=== PATIENT | female | born 1990 | race Caucasian/White ===

== ENCOUNTER 2021-01-01 09:45 | Inpatient (IN) | payer OTHER ==
[2021-01-01 10:32] VITALS: BMI 46.3
[2021-01-01] MEDS ORDERED: OXYTOCIN 30 UNITS in 0.9% NS 30 UNIT/500 ML INFUS.BAG IVPB SCH (10:45)
[2021-01-01] MEDS: LACTATED RINGERS SOLUTION 1,000 ML IV SCH (11:00)
[2021-01-01] MEDS ORDERED: OXYTOCIN 30 UNITS in 0.9% NS 30 UNIT/500 ML INFUS.BAG IVPB ONE (11:13)
[2021-01-01 12:30] LABS: BASO % 0.2 % (0-2.0); HEMOGLOBIN 11.3 GM/dL (10.7-15.3); LYMPH % 18.7 % (8-40); MCH 29.8 pg (25.7-33.7); MCHC 34.2 g/dl (32.0-36.0); MEAN CELL VOLUME 87.1 fl (80-96); MEAN PLT VOLUME 8.9 fl (7.5-11.1); MONO % 10.7 % (3.8-10.2); NEUT % 68.4 % (42.8-82.8); PLATELET COUNT 279 K/MM3 (134-434); RBC 3.79 M/mm3 (3.60-5.2); RDW 14.5 % (11.6-15.6); WHITE BLOOD COUNT 10.2 K/mm3 (4.0-10.0)
[2021-01-01 12:32] LABS: INR 1.02 (0.83-1.09); PROTHROMBIN TIME (PATIENT) 12.3 SEC (9.7-13.0)
[2021-01-01 12:35] LABS: ACTIVATED PTT 26.4 SECONDS (25.2-36.5)
[2021-01-01 13:00] LABS: POTASSIUM 4.2 mmol/L (3.5-5.1)
[2021-01-01 13:01] LABS: CALCIUM 8.9 mg/dL (8.5-10.1)
[2021-01-01 13:02] LABS: BLOOD UREA NITROGEN 9.4 mg/dL (7-18)
[2021-01-01 13:05] LABS: CREATININE 0.6 mg/dL (0.55-1.3)
[2021-01-01 13:45] LABS: HIV INTERPRETATION NEGATIVE (NEGATIVE)
[2021-01-01] MEDS ORDERED: ACETAMINOPHEN 1000 MG/100 ML VIAL (NON FORMULARY) IVPB PRN ×2 (14:27→21:00)
[2021-01-01] MEDS ORDERED: SIMETHICONE 80 MG TAB.CHEW (FP) PO PRN (14:27)
[2021-01-01] MEDS ORDERED: SENNOSIDES/DOCUSATE COMBO (SENNA PLUS) TABLET (UD) PO PRN ×2 (14:27→21:00)
[2021-01-01] MEDS ORDERED: oxyCODONE HCL 5 MG TABLET PO PRN ×2 (14:27→21:00)
[2021-01-01] MEDS ORDERED: ONDANSETRON 4 MG/2 ML VIAL IVPB PRN ×2 (14:27→21:00)
[2021-01-01] MEDS ORDERED: IBUPROFEN 800 MG/8 ML IJ IVPB SCH (14:30)
[2021-01-01] MEDS ORDERED: OXYTOCIN 20 UNITS in 0.9% NS 20 UNIT/1,000 ML INFUS.BAG IV SCH ×2 (14:30→21:00)
[2021-01-01] MEDS ORDERED: WITCH HAZEL 50% (TUCKS) 40 PAD/JAR PAD TP PRN (14:31)
[2021-01-01] MEDS ORDERED: PCA PUMP NR ONE (15:02)
[2021-01-01] MEDS ORDERED: FENTANYL/BUPIVACAINE/NS/PF - PCEA - 50 ML DISP.SYRIN EP ONE ×2 (15:02→19:26)
[2021-01-01] MEDS ORDERED: BUPIVACAINE HCL/PF 0.25% (2.5MG/ML) 10 ML VIAL ONE (15:09)
[2021-01-01] MEDS ORDERED: NALOXONE HCL 0.4 MG/ML VIAL IVPUSH PRN (15:33)
[2021-01-01] MEDS ORDERED: FENTANYL/BUPIVACAINE/NS/PF - PCEA - 50 ML DISP.SYRIN EP SCH (15:45)
[2021-01-01] MEDS ORDERED: OXYTOCIN 20 UNITS in 0.9% NS 20 UNIT/1,000 ML INFUS.BAG IV ONE ×2 (19:27→23:14)
[2021-01-01] MEDS ORDERED: ACETAMINOPHEN 325 MG TABLET (FP) PO SCH (20:00)
[2021-01-01] MEDS ORDERED: LIDO 2%/EPI 1:200000 PRESRVFRE (20 ML SDVIAL) ONE (20:05)
[2021-01-01] MEDS ORDERED: IBUPROFEN 600 MG TABLET (FP) PO PRN ×2 (21:00→21:10)
[2021-01-01] MEDS ORDERED: ACETAMINOPHEN 325 MG TABLET (FP) PO PRN ×2 (21:00→21:10)
[2021-01-01] MEDS ORDERED: ONDANSETRON 4 MG/2 ML VIAL IVPUSH PRN (21:10)
[2021-01-01] MEDS ORDERED: IBUPROFEN 800 MG/8 ML IJ IVPB ONE (21:34)
[2021-01-01] MEDS: IBUPROFEN 800 MG/8 ML IJ IVPB PRN (21:42)
[2021-01-02] MEDS ORDERED: PRENATAL VITAMINS W/ FOLIC ACID TABLET (FP) PO SCH (10:00)
[2021-01-02] MEDS ORDERED: IBUPROFEN 600 MG TABLET (FP) PO SCH (10:00)
[2021-01-02 10:17] LABS: BASO % 0.2 % (0-2.0); EOS % 0.7 % (0-4.5); HEMATOCRIT 26.1 % (32.4-45.2); HEMOGLOBIN 8.9 GM/dL (10.7-15.3); LYMPH % 10.6 % (8-40); MCH 29.9 pg (25.7-33.7); MEAN CELL VOLUME 87.9 fl (80-96); MEAN PLT VOLUME 9.1 fl (7.5-11.1); NEUT % 80.5 % (42.8-82.8); PLATELET COUNT 225 K/MM3 (134-434); RBC 2.96 M/mm3 (3.60-5.2); WHITE BLOOD COUNT 10.8 K/mm3 (4.0-10.0)
[2021-01-02] MEDS: IBUPROFEN 800 MG/8 ML IJ IVPB PRN (11:51)
[2021-01-02] MEDS ORDERED: BISACODYL 10 MG SUPP.RECT RC PRN ×2 (14:27→21:00)
[2021-01-02] MEDS: SIMETHICONE 80 MG TAB.CHEW (FP) PO PRN (22:09)
[2021-01-02] MEDS: IBUPROFEN 600 MG TABLET (FP) PO PRN (22:10)
[2021-01-02] MEDS: oxyCODONE HCL 5 MG TABLET PO PRN (22:11)
[2021-01-02] MEDS ORDERED: diphenhydrAMINE HCL 50 MG CAPSULE PO PRN (22:30)
[2021-01-02] MEDS ORDERED: diphenhydrAMINE HCL 25 MG CAPSULE (FP) PO ONE (22:32)
[2021-01-03] MEDS ORDERED: diphenhydrAMINE HCL 25 MG CAPSULE (FP) PO ONE (12:13)
[2021-01-03] MEDS: ACETAMINOPHEN 325 MG TABLET (FP) PO PRN (12:17)
[2021-01-03] MEDS: IBUPROFEN 600 MG TABLET (FP) PO PRN (12:18)
[2021-01-03] MEDS: LACTATED RINGERS SOLUTION 1,000 ML IV SCH (13:17)
[2021-01-03] MEDS ORDERED: HYDROCORTISONE 1% TOPICAL CREAM 30 GM TUBE TP PRN (13:58)
[2021-01-04] MEDS: oxyCODONE HCL 5 MG TABLET PO PRN ×2 (02:46→09:21)
[2021-01-04] MEDS: IBUPROFEN 600 MG TABLET (FP) PO PRN ×2 (02:46→09:20)
[2021-01-04] MEDS: SIMETHICONE 80 MG TAB.CHEW (FP) PO PRN ×2 (02:47→09:22)
[2021-01-04] MEDS: ACETAMINOPHEN 325 MG TABLET (FP) PO PRN (09:21)
[2021-01-04 11:09] VITALS: BP 137/83; PULSE 98; TEMP 97.6
== END 2021-01-04 15:30 | disposition home or self-care (01) | DRG 788 ==
LOC: JLDR 09:45 → J3W 23:19
PROVIDERS: ADMIT Specialist; ATTEND Specialist
PROC: 10D00Z1 Extraction of Products of Conception, Low, Open Approach (ICD-10-PCS; principal; 2021-01-01)
PROC: 3E033VJ Introduction of Other Hormone into Peripheral Vein, Percutaneous Approach (ICD-10-PCS; 2021-01-01)
PROC: 10907ZC Drainage of Amniotic Fluid, Therapeutic from Products of Conception, Via Natural or Artificial Opening (ICD-10-PCS; 2021-01-01)
DX: O62.2 Other uterine inertia (principal); O36.63X0 Maternal care for excessive fetal growth, third trimester, not applicable or unspecified; O24.425 Gestational diabetes mellitus in childbirth, controlled by oral hypoglycemic drugs; Z3A.39 39 weeks gestation of pregnancy; Z37.0 Single live birth; Z86.59 Personal history of other mental and behavioral disorders
CPT/HCPCS: 36415; 80048; 85025; 85610; 85730; 86780; 86850; 86900; 86901; 87389; 88307-TC; J0131

== ENCOUNTER 2022-12-07 10:50 | Inpatient (IN) | payer OTHER ==
[2022-12-07] MEDS: ELECTROLYTE-148 SOLN 1,000 ML IV SCH ×2 (11:10→15:10)
[2022-12-07] MEDS ORDERED: AMPICILLIN SODIUM 2 GM VIAL ONE (11:46)
[2022-12-07] MEDS ORDERED: BETAMET ACET/BETAMET NA PH 30 MG/5 ML VIAL ONE (11:47)
[2022-12-07 11:57] VITALS: BMI 47.1
[2022-12-07] MEDS ORDERED: BETAMET ACET/BETAMET NA PH 30 MG/5 ML VIAL IM ONE (12:11)
[2022-12-07] MEDS ORDERED: AMPICILLIN - 2 GM in SODIUM CHLORIDE 100 ML IVPB ONE (12:13)
[2022-12-07 12:54] LABS: HEMATOCRIT 25.4 % (32.4-45.2); HEMOGLOBIN 8.5 GM/dL (10.7-15.3); MCHC 33.5 g/dl (32.0-36.0); MEAN CELL VOLUME 83.7 fl (80-96); MEAN PLT VOLUME 7.8 fl (7.5-11.1); PLATELET COUNT 412 10^3/uL (134-434); RBC 3.03 M/mm3 (3.60-5.2); RDW 16.6 % (11.6-15.6); WHITE BLOOD COUNT 25.1 K/mm3 (4.0-10.0)
[2022-12-07 13:00] LABS: INR 1.28 (0.83-1.09); PROTHROMBIN TIME (PATIENT) 14.8 SEC (9.7-13.0)
[2022-12-07 13:03] LABS: ACTIVATED PTT 30.5 SECONDS (25.2-36.5)
[2022-12-07 13:12] LABS: CALCIUM 8.6 mg/dL (8.5-10.1)
[2022-12-07 13:16] LABS: CREATININE 0.9 mg/dL (0.55-1.3)
[2022-12-07] MEDS ORDERED: OXYTOCIN 30 UNITS in 0.9% NS 30 UNIT/500 ML INFUS.BAG IVPB ONE (13:25)
[2022-12-07] MEDS ORDERED: FENTANYL/BUPIVACAINE/NS/PF - PCEA - 50 ML DISP.SYRIN EP ONE ×2 (13:40→17:06)
[2022-12-07] MEDS ORDERED: OXYTOCIN 30 UNITS in 0.9% NS 30 UNIT/500 ML INFUS.BAG IVPB SCH (13:45)
[2022-12-07 13:46] LABS: ANISOCYTOSIS 1+
[2022-12-07] MEDS ORDERED: BUPIVACAINE HCL/PF 0.25% (2.5MG/ML) 10 ML VIAL ONE (13:54)
[2022-12-07] MEDS: FENTANYL/BUPIVACAINE/NS/PF - PCEA - 50 ML DISP.SYRIN EP SCH (14:05)
[2022-12-07] MEDS ORDERED: NALOXONE HCL 0.4 MG/ML VIAL IVPUSH PRN (14:43)
[2022-12-07] MEDS ORDERED: AMPICILLIN SODIUM 1 GM VIAL ONE (15:59)
[2022-12-07] MEDS: AMPICILLIN - 1 GM in SODIUM CHLORIDE 100 ML IVPB SCH ×2 (16:05→22:30)
[2022-12-07] MEDS ORDERED: OXYTOCIN 20 UNITS in 0.9% NS 20 UNIT/1,000 ML INFUS.BAG IV ONE (17:57)
[2022-12-07] MEDS ORDERED: oxyCODONE HCL 5 MG TABLET PO PRN (19:26)
[2022-12-07] MEDS ORDERED: WITCH HAZEL 50% (TUCKS) 40 PAD/JAR PAD TP PRN (19:26)
[2022-12-07] MEDS ORDERED: METHYLERGONOVINE MALEATE 0.2 MG/1 ML AMP IM PRN (19:26)
[2022-12-07] MEDS ORDERED: ACETAMINOPHEN 325 MG TABLET (FP) PO PRN (19:26)
[2022-12-07] MEDS ORDERED: BISACODYL 10 MG SUPP.RECT RC PRN (19:26)
[2022-12-07] MEDS ORDERED: BENZOCAINE 28 GM HEMORRHOIDAL OINTMENT TP PRN (19:26)
[2022-12-07] MEDS ORDERED: OXYTOCIN 20 UNITS in 0.9% NS 20 UNIT/1,000 ML INFUS.BAG IV SCH (19:30)
[2022-12-07] MEDS ORDERED: IBUPROFEN 600 MG TABLET (FP) PO ONE (19:36)
[2022-12-07] MEDS: IBUPROFEN 600 MG TABLET (FP) PO PRN (19:37)
[2022-12-07] MEDS: BENZOCAINE 20% 57 GM BOTTLE TP PRN (22:10)
[2022-12-08] MEDS: IBUPROFEN 600 MG TABLET (FP) PO PRN ×3 (02:50→21:54)
[2022-12-08 07:44] LABS: HEMATOCRIT 26.1 % (32.4-45.2); HEMOGLOBIN 8.5 GM/dL (10.7-15.3); MCH 27.6 pg (25.7-33.7); MCHC 32.6 g/dl (32.0-36.0); MEAN CELL VOLUME 84.6 fl (80-96); PLATELET COUNT 392 10^3/uL (134-434); RBC 3.09 M/mm3 (3.60-5.2); RDW 16.6 % (11.6-15.6); WHITE BLOOD COUNT 26.4 K/mm3 (4.0-10.0)
[2022-12-08 09:20] LABS: ANISOCYTOSIS 3+; MACROCYTOSIS 0
[2022-12-08] MEDS ORDERED: DIPHTH,PERTUSS(ACELL),TET 0.5 ML DISP.SYRIN IM ONE (10:00)
[2022-12-08] MEDS: AMPICILLIN - 1 GM in SODIUM CHLORIDE 100 ML IVPB SCH ×2 (19:45→19:46)
[2022-12-08] MEDS: FENTANYL/BUPIVACAINE/NS/PF - PCEA - 50 ML DISP.SYRIN EP SCH (19:46)
[2022-12-08] MEDS ORDERED: SENNOSIDES/DOCUSATE COMBO (SENNA PLUS) TABLET (UD) PO PRN (22:00)
[2022-12-08] MEDS: BENZOCAINE 20% 57 GM BOTTLE TP PRN (22:43)
[2022-12-09] MEDS: IBUPROFEN 600 MG TABLET (FP) PO PRN (08:55)
[2022-12-09 09:09] LABS: BASO % 0.2 % (0-2.0); EOS % 0.6 % (0-4.5); HEMATOCRIT 26.5 % (32.4-45.2); HEMOGLOBIN 8.6 GM/dL (10.7-15.3); LYMPH % 12.1 % (8-40); MCH 27.5 pg (25.7-33.7); MCHC 32.3 g/dl (32.0-36.0); MEAN CELL VOLUME 85.2 fl (80-96); MEAN PLT VOLUME 7.8 fl (7.5-11.1); NEUT % 81.1 % (42.8-82.8); PLATELET COUNT 354 10^3/uL (134-434); RBC 3.11 M/mm3 (3.60-5.2); RDW 16.4 % (11.6-15.6); WHITE BLOOD COUNT 17.3 K/mm3 (4.0-10.0)
[2022-12-09 11:16] VITALS: BP 119/76; PULSE 75; RESP 16; TEMP 98.4
== END 2022-12-09 13:40 | disposition home or self-care (01) | DRG 807 ==
LOC: JLDR 10:50 → J3W 20:02
PROVIDERS: ADMIT Specialist; ATTEND Specialist
PROC: 10E0XZZ Delivery of Products of Conception, External Approach (ICD-10-PCS; principal; 2022-12-07)
PROC: 0W8NXZZ Division of Female Perineum, External Approach (ICD-10-PCS; 2022-12-07)
DX: O34.218 Maternal care for other type scar from previous cesarean delivery (principal); Z37.0 Single live birth; O24.424 Gestational diabetes mellitus in childbirth, insulin controlled; O99.214 Obesity complicating childbirth; E66.01 Morbid (severe) obesity due to excess calories; Z3A.35 35 weeks gestation of pregnancy
CPT/HCPCS: 36415; 59409; 80048; 82962; 85025; 85610; 85730; 86780; 86850; 86900; 86901; 90715; 96372; C9803-CS; U0003; U0005

== ENCOUNTER 2023-12-10 16:44 | Emergency (ER) | payer OTHER ==
[2023-12-10] MEDS ORDERED: FAMOTIDINE 20 MG/50 ML IVPB 20 MG/50 ML MG IVPB ONE (17:18)
[2023-12-10] MEDS ORDERED: SODIUM CHLORIDE 0.9% 500 ML INFUS.BAG IV ONE (17:18)
[2023-12-10] MEDS ORDERED: ACETAMINOPHEN 1000 MG/100 ML BAG IVPB ONE (17:18)
[2023-12-10] MEDS ORDERED: MAG HYDROX/AL HYDROX/SIMETH -MYLANTA- ORAL SUSPENSION PO ONE (17:18)
[2023-12-10 17:22] VITALS: BP 102/56; PULSE 63; RESP 18; TEMP 98.9; BMI 42.9
[2023-12-10] MEDS ORDERED: ACETAMINOPHEN 325 MG TABLET (FP) PO ONE (17:33)
[2023-12-10] MEDS ORDERED: ACETAMINOPHEN 500 MG TABLET (FP) ONE (17:34)
== END 2023-12-10 17:50 | disposition home or self-care (01) ==
LOC: FER 16:44
DX: R10.9 Unspecified abdominal pain (principal); K45.8 Other specified abdominal hernia without obstruction or gangrene
CPT/HCPCS: 99283-25

== ENCOUNTER 2023-12-19 11:11 | Emergency (ER) | payer OTHER ==
[2023-12-19 11:21] VITALS: BP 132/87; PULSE 82; RESP 18; TEMP 98.8; BMI 42.9
[2023-12-19] MEDS ORDERED: ONDANSETRON 4 MG/2 ML VIAL IVPUSH ONE ×2 (11:49→14:58)
[2023-12-19] MEDS ORDERED: SODIUM CHLORIDE 0.9% 1000 ML INFUS.BAG IV ONE (11:49)
[2023-12-19] MEDS ORDERED: FAMOTIDINE 20 MG/50 ML IVPB 20 MG/50 ML MG IVPB ONE ×2 (11:50→12:02)
[2023-12-19] MEDS ORDERED: ONDANSETRON 4 MG/2 ML VIAL ONE ×2 (12:02→15:01)
[2023-12-19 12:12] LABS: HEMATOCRIT 38.3 % (32.4-45.2); HEMOGLOBIN 12.7 G/dL (10.7-15.3); MCH 29.6 pg (25.7-33.7); MCHC 33.1 g/dl (32.0-36.0); MEAN CELL VOLUME 89.2 fl (80-96); MEAN PLT VOLUME 8.6 fl (7.5-11.1); PLATELET COUNT 423.8 10^3/uL (134-434); RBC 4.29 10^6/uL (3.60-5.2); RDW 14.4 % (11.6-15.6); WHITE BLOOD COUNT 9.7 10^3/uL (4.0-10.8)
[2023-12-19 12:21] LABS: HCG,QUALITATIVE URINE Negative
[2023-12-19 12:26] LABS: ALBUMIN 3.9 g/dl (3.4-5.0); BILIRUBIN,TOTAL 0.3 mg/dl (0.2-1); CREATININE 0.7 mg/dl (0.6-1.3); POTASSIUM 4.1 mmol/L (3.5-5.1); TOT PROT 7.1 g/dl (6.4-8.2)
== END 2023-12-19 15:22 | disposition home or self-care (01) ==
LOC: FER 11:11
PROC: 3E03329 Introduction of Other Anti-infective into Peripheral Vein, Percutaneous Approach (ICD-10-PCS; principal; 2023-12-19)
PROC: 3E033GC Introduction of Other Therapeutic Substance into Peripheral Vein, Percutaneous Approach (ICD-10-PCS; 2023-12-19)
PROC: 3E033NZ Introduction of Analgesics, Hypnotics, Sedatives into Peripheral Vein, Percutaneous Approach (ICD-10-PCS; 2023-12-19)
DX: R10.32 Left lower quadrant pain (principal)
CPT/HCPCS: 36415; 74177-TC; 80053; 81003; 81015; 83690; 84703; 85027; 87086; 99285-25; Q9967